=== PATIENT | female | born 2000 | race Caucasian/White ===

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

== ENCOUNTER 2018-10-31 13:56 | Emergency (ER) | payer SELFPAY ==
[~2018-10-31] VITALS: Ht 157.5 cm; Wt 82.8 kg
[2018-10-31 15:38] VITALS: BP 93/51
== END 2018-10-31 15:51 | disposition home or self-care (01) ==
LOC: ED 13:56
DX: R51 Headache (principal); K21.9 Gastro-esophageal reflux disease without esophagitis; R42 Dizziness and giddiness
CPT/HCPCS: J1885

== ENCOUNTER → 2020-06-05 | Outpatient (CLI) | payer SELFPAY | LOC: LAB 12:41 | DX: R05 Cough (principal); R09.81 Nasal congestion; Z20.828 Contact with and (suspected) exposure to other viral communicable diseases ==

== ENCOUNTER 2020-08-04 16:44 | Emergency (ER) | payer SELFPAY ==
[2020-08-04 17:46] LABS: EOS # 0.1 (0.04-0.40); HEMATOCRIT 41.2 % (37.0-47.0); HEMOGLOBIN 13.4 g/dL (12.5-16.0); LYMPH# 1.5 (1.50-4.00); MEAN CELL VOLUME 90 fl (78-100); MEAN CORPUSCULAR HEMOGLOBIN 29 pg (27-31); MEAN CORPUSCULAR HGB CONC 33 g/dL (33-37); MEAN PLATELET VOLUME 9.4 fl (7.4-10.4); MONO # 0.7 (0.20-0.80); NEU # 4.9 (1.40-6.50); PLATELET COUNT 232 K/mm3 (130-400); RED BLOOD COUNT 4.56 M/mm3 (4.10-5.30); WHITE BLOOD COUNT 7.1 K/mm3 (4.8-10.8)
[2020-08-04 19:40] LABS: URINE APPEARANCE CLEAR; URINE BILIRUBIN NEGATIVE (NEGATIVE); URINE BLOOD NEGATIVE (NEGATIVE); URINE COLOR YELLOW; URINE GLUCOSE NEGATIVE (NEGATIVE); URINE KETONE NEGATIVE (NEGATIVE); URINE LEUKOCYTE ESTERASE NEGATIVE (NEGATIVE); URINE NITRATE NEGATIVE (NEGATIVE); URINE PROTEIN(semi-quant) NEGATIVE (NEGATIVE); URINE UROBILINOGEN NORMAL (NORMAL)
[2020-08-04 19:41] LABS: URINE WBC 0-1 /hpf (0-3)
[2020-08-04 20:32] VITALS: BP 111/73
== END 2020-08-04 20:32 | disposition home or self-care (01) ==
LOC: ED 16:44
PROVIDERS: Family Medicine
DX: R10.31 Right lower quadrant pain (principal); F41.9 Anxiety disorder, unspecified; F17.290 Nicotine dependence, other tobacco product, uncomplicated

== ENCOUNTER → 2020-09-19 | Outpatient (CLI) | payer SELFPAY ==
[2020-09-19 13:18] LABS: EOS # 0.1 (0.04-0.40); EOS % 1.2 % (1.0-5.0); HEMATOCRIT 43.5 % (37.0-47.0); HEMOGLOBIN 13.8 g/dL (12.5-16.0); LYMPH# 1.7 (1.50-4.00); MEAN CELL VOLUME 92 fl (78-100); MEAN CORPUSCULAR HEMOGLOBIN 29 pg (27-31); MEAN CORPUSCULAR HGB CONC 32 g/dL (33-37); MEAN PLATELET VOLUME 9.1 fl (7.4-10.4); MONO # 0.7 (0.20-0.80); NEU # 4.8 (1.40-6.50); PLATELET COUNT 314 K/mm3 (130-400); RED BLOOD COUNT 4.74 M/mm3 (4.10-5.30); RED CELL DISTRIBUTION WIDTH 12.9 % (11.5-14.5); WHITE BLOOD COUNT 7.3 K/mm3 (4.8-10.8)
[2020-09-19 13:27] LABS: ALBUMIN 4.4 g/dL (3.5-5.0)
[2020-09-19 13:28] LABS: POTASSIUM 4.2 mmol/L (3.5-5.1)
[2020-09-19 13:30] LABS: TOTAL PROTEIN 8.1 g/dL (6.4-8.3)
[2020-09-19 13:32] LABS: TOTAL BILIRUBIN 0.6 mg/dL (0.2-1.2)
[2020-09-19 13:43] LABS: CALCIUM 9.4 mg/dL (8.3-10.5)
[2020-09-19 14:26] LABS: ERYTHROCYTE SEDIMENTATION RATE 12 mm/hr (0-20)
[2020-09-20 14:23] LABS: ANA SCREEN with REFLEX Negative (Negative)
== END ==
LOC: RAD 12:31
PROVIDERS: Nurse Practitioner
DX: M25.562 Pain in left knee (principal)

== ENCOUNTER → 2020-12-11 | Outpatient (CLI) | payer SELFPAY | LOC: LAB 11:12 | DX: J02.9 Acute pharyngitis, unspecified (principal) ==

== ENCOUNTER 2021-02-04 10:32 | Emergency (ER) | payer SELFPAY ==
[2021-02-04 12:11] VITALS: BP 120/72
== END 2021-02-04 12:11 | disposition home or self-care (01) ==
LOC: ED 10:32
DX: H16.001 Unspecified corneal ulcer, right eye (principal); F32.9 Major depressive disorder, single episode, unspecified; F41.9 Anxiety disorder, unspecified; K21.9 Gastro-esophageal reflux disease without esophagitis; F17.290 Nicotine dependence, other tobacco product, uncomplicated; Z79.899 Other long term (current) drug therapy
CPT/HCPCS: J1885

== ENCOUNTER → 2024-05-18 | Outpatient (CLI) | payer BC, OTHER ==
[~2024-05-18] MED LIST changes: +ACYCLOVIR200 M1 PO
== END ==
LOC: RAD 08:54
DX: G43.909 Migraine, unspecified, not intractable, without status migrainosus (principal)

== ENCOUNTER → 2024-06-04 | Outpatient (CLI) | payer BC, OTHER ==
[2024-06-04 12:15] LABS: BASO # 0.02 K/mm3 (0.02-0.10); EOS # 0.11 K/mm3 (0.04-0.40); EOS % 1.4 % (1.0-5.0); HEMATOCRIT 43.1 % (37.0-47.0); HEMOGLOBIN 13.7 g/dL (12.5-16.0); MEAN CELL VOLUME 91 fl (78-100); MEAN CORPUSCULAR HEMOGLOBIN 29 pg (27-31); MEAN CORPUSCULAR HGB CONC 32 g/dL (33-37); MEAN PLATELET VOLUME 8.7 fl (7.4-10.4); MONO # 0.64 K/mm3 (0.20-0.80); NEU # 5.13 K/mm3 (1.40-6.50); PLATELET COUNT 324 K/mm3 (130-400); RED BLOOD COUNT 4.76 M/mm3 (4.10-5.30); RED CELL DISTRIBUTION WIDTH 12.5 % (11.5-14.5); WHITE BLOOD COUNT 7.9 K/mm3 (4.8-10.8)
[2024-06-04 12:23] LABS: ALBUMIN 4.3 g/dL (3.5-5.0)
[2024-06-04 12:25] LABS: CALCIUM 9.8 mg/dL (8.3-10.5)
[2024-06-04 12:26] LABS: TOTAL PROTEIN 7.8 g/dL (6.4-8.3)
[2024-06-04 12:28] LABS: TOTAL BILIRUBIN 0.3 mg/dL (0.2-1.2)
== END ==
LOC: LAB 11:47
PROVIDERS: Nurse Practitioner
DX: R53.83 Other fatigue (principal)

== ENCOUNTER → 2024-11-01 | Outpatient (REF) | payer BC, OTHER | LOC: LAB 18:36 | DX: R50.9 Fever, unspecified (principal) ==